=== PATIENT | female | born 1960 | race Caucasian/White ===

== ENCOUNTER 2017-10-06 06:44 | Inpatient (IN) | payer MEDICARE, MEDICAID ==
[2017-10-06] MEDS ORDERED: ONDANSETRON PF 4 MG/2 ML VIAL. IV (10:30)
[2017-10-06] MEDS: IV NORMAL SALINE 1000ML BAG 1,000 ML IV (10:48)
[2017-10-06] MEDS: hydroCHLOROthiazide 12.5 MG CAPSULE PO (10:49)
[2017-10-06] MEDS: LISINOPRIL 20 MG TABLET PO (10:49)
[2017-10-06] MEDS: amLODIPine BESYLATE 10 MG TABLET PO (10:49)
[2017-10-06] MEDS: LEVOTHYROXINE 137 MCG TABLET PO (10:49)
[2017-10-06] MEDS: CITALOPRAM 20 MG TABLET. PO (10:49)
[2017-10-06] MEDS: MORPHINE SULFATE 2 MG/ML DISP.SYRIN. IV ×3 (10:50→20:19)
[2017-10-06 12:16] LABS: TRIGLYCERIDES 55 mg/dL (0-150)
[2017-10-06 13:00] LABS: LIPASE 10234 U/L (73-393)
[2017-10-07] MEDS: MORPHINE SULFATE 2 MG/ML DISP.SYRIN. IV ×7 (00:40→22:45)
[2017-10-07] MEDS: IV NORMAL SALINE 1000ML BAG 1,000 ML IV ×2 (01:37→13:23)
[2017-10-07 05:02] LABS: ADD MAN DIFF? NO
[2017-10-07 05:33] LABS: BASO % 1 % (0-3); EOS # 0.1 x10^3/uL (0.0-0.7); EOS % 1 % (0-3); HEMATOCRIT 39.4 % (36.0-47.0); LYMPH # 2.3 x10^3/uL (1.0-4.8); LYMPH % 31 % (24-48); MEAN CORPUSCULAR HEMOGLOBIN 28 pg (25-35); MEAN CORPUSCULAR HGB CONC 33 g/dL (31-37); MEAN CORPUSCULAR VOLUME 86 fL (79-100); MONO # 0.6 x10^3/uL (0.0-1.1); MONO % 8 % (0-9); NEUT # 4.4 x10^3uL (1.8-7.7); NEUT % 59 % (31-73); PLATELET COUNT 209 x10^3/uL (140-400); RED BLOOD COUNT 4.59 x10^6/uL (3.50-5.40); RED CELL DISTRIBUTION WIDTH 15.4 % (11.5-14.5); WHITE BLOOD COUNT 7.5 x10^3/uL (4.0-11.0)
[2017-10-07 05:54] LABS: ANION GAP 6 (6-14); BLOOD UREA NITROGEN 23 mg/dL (7-20); CALCIUM 8.5 mg/dL (8.5-10.1); CARBON DIOXIDE 35 mmol/L (21-32); CHLORIDE 100 mmol/L (98-107); CREATININE 1.1 mg/dL (0.6-1.0); GLUCOSE 100 mg/dL (70-99); POTASSIUM 3.4 mmol/L (3.5-5.1); SODIUM 141 mmol/L (136-145)
[2017-10-07] MEDS: LEVOTHYROXINE 137 MCG TABLET PO (07:35)
[2017-10-07] MEDS: CITALOPRAM 20 MG TABLET. PO (08:52)
[2017-10-07] MEDS: hydroCHLOROthiazide 12.5 MG CAPSULE PO (08:58)
[2017-10-07] MEDS: amLODIPine BESYLATE 10 MG TABLET PO (08:59)
[2017-10-07] MEDS: LISINOPRIL 20 MG TABLET PO (08:59)
[2017-10-07] MEDS: [UNRECOGNIZED DRUG - OTHER] SL (09:00)
[2017-10-07] MEDS: BUPRENORPHINE HCL SL (09:00)
[2017-10-07] MEDS: NALOXONE HCL SL (09:00)
[2017-10-07] MEDS: POTASSIUM CHLORIDE 20 MEQ TABLET.ER. PO (13:24)
[2017-10-08] MEDS: MORPHINE SULFATE 2 MG/ML DISP.SYRIN. IV ×6 (02:51→22:57)
[2017-10-08] MEDS: IV NORMAL SALINE 1000ML BAG 1,000 ML IV ×2 (02:53→17:12)
[2017-10-08 04:24] LABS: ADD MAN DIFF? NO
[2017-10-08 04:30] LABS: BASO # 0.1 x10^3/uL (0.0-0.2); BASO % 1 % (0-3); EOS # 0.1 x10^3/uL (0.0-0.7); EOS % 2 % (0-3); HEMATOCRIT 38.5 % (36.0-47.0); LYMPH # 2.2 x10^3/uL (1.0-4.8); LYMPH % 31 % (24-48); MEAN CORPUSCULAR HEMOGLOBIN 29 pg (25-35); MEAN CORPUSCULAR HGB CONC 34 g/dL (31-37); MEAN CORPUSCULAR VOLUME 85 fL (79-100); MONO # 0.7 x10^3/uL (0.0-1.1); MONO % 10 % (0-9); NEUT # 4.2 x10^3uL (1.8-7.7); NEUT % 58 % (31-73); PLATELET COUNT 186 x10^3/uL (140-400); RED BLOOD COUNT 4.53 x10^6/uL (3.50-5.40); RED CELL DISTRIBUTION WIDTH 15.2 % (11.5-14.5); WHITE BLOOD COUNT 7.3 x10^3/uL (4.0-11.0)
[2017-10-08 04:45] LABS: ANION GAP 7 (6-14); BLOOD UREA NITROGEN 19 mg/dL (7-20); CALCIUM 9.1 mg/dL (8.5-10.1); CARBON DIOXIDE 33 mmol/L (21-32); CHLORIDE 102 mmol/L (98-107); GFR 56.9; GLUCOSE 95 mg/dL (70-99); LIPASE 511 U/L (73-393); POTASSIUM 3.8 mmol/L (3.5-5.1); SODIUM 142 mmol/L (136-145)
[2017-10-08] MEDS: LISINOPRIL 20 MG TABLET PO (09:00)
[2017-10-08] MEDS: CITALOPRAM 20 MG TABLET. PO (09:00)
[2017-10-08] MEDS: BUPRENORPHINE HCL SL (09:00)
[2017-10-08] MEDS: NALOXONE HCL SL (09:00)
[2017-10-08] MEDS: hydroCHLOROthiazide 12.5 MG CAPSULE PO (09:00)
[2017-10-08] MEDS: LEVOTHYROXINE 137 MCG TABLET PO (09:00)
[2017-10-08] MEDS: [UNRECOGNIZED DRUG - OTHER] SL (09:00)
[2017-10-08] MEDS: FLU VACC QS2017-18 (36MOS+)/PF 0.5 ML SYRINGE. VAX IM (11:00)
[2017-10-08 12:22] LABS: ALBUMIN 3.3 g/dL (3.4-5.0); ALK PHOS 66 U/L (46-116); ALT (SGPT) 79 U/L (14-59); AST (SGOT) 32 U/L (15-37); DIRECT BILIRUBIN 0.1 mg/dL (0.0-0.2); TOTAL BILIRUBIN 0.6 mg/dL (0.2-1.0); TOTAL PROTEIN 6.5 g/dL (6.4-8.2)
[2017-10-08] MEDS ORDERED: DOCUSATE SODIUM 100 MG CAPSULE. PO (14:00)
[2017-10-08] MEDS ORDERED: ONDANSETRON PF 4 MG/2 ML VIAL. IV (14:00)
[2017-10-08] MEDS ORDERED: ACETAMINOPHEN 325 MG TABLET. PO (14:00)
[2017-10-08] MEDS ORDERED: hydrALAZINE 20 MG/ML VIAL. IVP (14:00)
[2017-10-09] MEDS: MORPHINE SULFATE 2 MG/ML DISP.SYRIN. IV ×4 (02:16→11:06)
[2017-10-09 05:53] LABS: ADD MAN DIFF? NO
[2017-10-09] MEDS: IV NORMAL SALINE 1000ML BAG 1,000 ML IV ×2 (06:05→19:34)
[2017-10-09 06:10] LABS: BASO % 1 % (0-3); EOS # 0.2 x10^3/uL (0.0-0.7); EOS % 2 % (0-3); HEMATOCRIT 39.1 % (36.0-47.0); HEMOGLOBIN 12.9 g/dL (12.0-15.5); LYMPH # 2.2 x10^3/uL (1.0-4.8); LYMPH % 34 % (24-48); MEAN CORPUSCULAR HEMOGLOBIN 28 pg (25-35); MEAN CORPUSCULAR HGB CONC 33 g/dL (31-37); MEAN CORPUSCULAR VOLUME 85 fL (79-100); MONO # 0.6 x10^3/uL (0.0-1.1); MONO % 9 % (0-9); NEUT # 3.5 x10^3uL (1.8-7.7); NEUT % 54 % (31-73); PLATELET COUNT 190 x10^3/uL (140-400); RED BLOOD COUNT 4.59 x10^6/uL (3.50-5.40); RED CELL DISTRIBUTION WIDTH 14.8 % (11.5-14.5); WHITE BLOOD COUNT 6.4 x10^3/uL (4.0-11.0)
[2017-10-09 06:23] LABS: ANION GAP 6 (6-14); BLOOD UREA NITROGEN 15 mg/dL (7-20); CALCIUM 8.6 mg/dL (8.5-10.1); CARBON DIOXIDE 33 mmol/L (21-32); CHLORIDE 102 mmol/L (98-107); CREATININE 0.9 mg/dL (0.6-1.0); GFR 64.3; GLUCOSE 79 mg/dL (70-99); LIPASE 229 U/L (73-393); POTASSIUM 3.5 mmol/L (3.5-5.1); SODIUM 141 mmol/L (136-145)
[2017-10-09] MEDS: LEVOTHYROXINE 137 MCG TABLET PO (08:34)
[2017-10-09] MEDS: CITALOPRAM 20 MG TABLET. PO (11:06)
[2017-10-09] MEDS: LISINOPRIL 20 MG TABLET PO (11:06)
[2017-10-09] MEDS: hydroCHLOROthiazide 12.5 MG CAPSULE PO (11:06)
[2017-10-09] MEDS: HYDROmorphone 2 MG/ML VIAL IV ×3 (14:58→20:57)
[2017-10-10] MEDS: HYDROmorphone 2 MG/ML VIAL IV ×5 (01:13→20:31)
[2017-10-10 05:38] LABS: ADD MAN DIFF? NO
[2017-10-10 06:06] LABS: BASO % 1 % (0-3); EOS # 0.2 x10^3/uL (0.0-0.7); EOS % 3 % (0-3); HEMATOCRIT 42.9 % (36.0-47.0); HEMOGLOBIN 14.2 g/dL (12.0-15.5); LYMPH # 2.3 x10^3/uL (1.0-4.8); LYMPH % 36 % (24-48); MEAN CORPUSCULAR HEMOGLOBIN 28 pg (25-35); MEAN CORPUSCULAR HGB CONC 33 g/dL (31-37); MEAN CORPUSCULAR VOLUME 85 fL (79-100); MONO # 0.5 x10^3/uL (0.0-1.1); MONO % 8 % (0-9); NEUT # 3.4 x10^3uL (1.8-7.7); NEUT % 53 % (31-73); PLATELET COUNT 227 x10^3/uL (140-400); RED BLOOD COUNT 5.02 x10^6/uL (3.50-5.40); RED CELL DISTRIBUTION WIDTH 15.1 % (11.5-14.5); WHITE BLOOD COUNT 6.4 x10^3/uL (4.0-11.0)
[2017-10-10 06:41] LABS: ALBUMIN 3.4 g/dL (3.4-5.0); ALBUMIN/GLOBULIN RATIO 0.9 (1.0-1.7); ALK PHOS 58 U/L (46-116); ALT (SGPT) 48 U/L (14-59); ANION GAP 8 (6-14); AST (SGOT) 20 U/L (15-37); BLOOD UREA NITROGEN 10 mg/dL (7-20); BUN/CREATININE RATIO 10 (6-20); CALCIUM 9.2 mg/dL (8.5-10.1); CARBON DIOXIDE 32 mmol/L (21-32); CHLORIDE 103 mmol/L (98-107); GFR 56.9; GLUCOSE 120 mg/dL (70-99); POTASSIUM 3.6 mmol/L (3.5-5.1); SODIUM 143 mmol/L (136-145); TOTAL BILIRUBIN 0.5 mg/dL (0.2-1.0); TOTAL PROTEIN 7.4 g/dL (6.4-8.2)
[2017-10-10] MEDS: CITALOPRAM 20 MG TABLET. PO (08:21)
[2017-10-10] MEDS: LISINOPRIL 20 MG TABLET PO (08:21)
[2017-10-10] MEDS: IV NORMAL SALINE 1000ML BAG 1,000 ML IV ×2 (08:21→20:28)
[2017-10-10] MEDS: hydroCHLOROthiazide 12.5 MG CAPSULE PO (08:21)
[2017-10-10] MEDS: LEVOTHYROXINE 137 MCG TABLET PO (08:21)
[2017-10-11] MEDS: HYDROmorphone 2 MG/ML VIAL IV ×7 (00:33→18:21)
[2017-10-11 06:22] LABS: ADD MAN DIFF? NO
[2017-10-11 06:52] LABS: BASO % 1 % (0-3); EOS # 0.2 x10^3/uL (0.0-0.7); EOS % 4 % (0-3); HEMATOCRIT 38.9 % (36.0-47.0); HEMOGLOBIN 13.1 g/dL (12.0-15.5); LYMPH # 2.1 x10^3/uL (1.0-4.8); LYMPH % 37 % (24-48); MEAN CORPUSCULAR HEMOGLOBIN 29 pg (25-35); MEAN CORPUSCULAR HGB CONC 34 g/dL (31-37); MEAN CORPUSCULAR VOLUME 85 fL (79-100); MONO # 0.5 x10^3/uL (0.0-1.1); MONO % 10 % (0-9); NEUT # 2.8 x10^3uL (1.8-7.7); NEUT % 49 % (31-73); PLATELET COUNT 209 x10^3/uL (140-400); RED BLOOD COUNT 4.56 x10^6/uL (3.50-5.40); RED CELL DISTRIBUTION WIDTH 14.8 % (11.5-14.5); WHITE BLOOD COUNT 5.7 x10^3/uL (4.0-11.0)
[2017-10-11] MEDS ORDERED: PROCHLORPERAZINE 10 MG/2 ML VIAL. IV (07:00)
[2017-10-11] MEDS ORDERED: ONDANSETRON PF 4 MG/2 ML VIAL. IV (07:00)
[2017-10-11] MEDS ORDERED: LIDOCAINE 1% PF 2 ML VIAL. ID (07:00)
[2017-10-11] MEDS ORDERED: MORPHINE SULFATE 2 MG/ML DISP.SYRIN. IV (07:00)
[2017-10-11] MEDS ORDERED: fentaNYL PF VIAL 100 MCG/2 ML VIAL IV (07:00)
[2017-10-11 07:08] LABS: ANION GAP 4 (6-14); BLOOD UREA NITROGEN 7 mg/dL (7-20); CALCIUM 8.7 mg/dL (8.5-10.1); CARBON DIOXIDE 35 mmol/L (21-32); CHLORIDE 105 mmol/L (98-107); GFR 56.9; GLUCOSE 121 mg/dL (70-99); POTASSIUM 3.9 mmol/L (3.5-5.1); SODIUM 144 mmol/L (136-145)
[2017-10-11] MEDS: LEVOTHYROXINE 137 MCG TABLET PO (08:18)
[2017-10-11] MEDS: hydroCHLOROthiazide 12.5 MG CAPSULE PO (08:19)
[2017-10-11] MEDS: CITALOPRAM 20 MG TABLET. PO (08:19)
[2017-10-11] MEDS: LISINOPRIL 20 MG TABLET PO (08:19)
[2017-10-11] MEDS: IV NORMAL SALINE 1000ML BAG 1,000 ML IV ×2 (10:30→16:22)
[2017-10-11] MEDS ORDERED: PROPOFOL 20 ML IV (12:54)
[2017-10-11] MEDS ORDERED: LIDOCAINE 2% PF Vial for OR 5 ML VIAL. (12:54)
[2017-10-11] MEDS ORDERED: DEXAMETHASONE SOD PHOS 20 MG/5 ML VIAL. (12:55)
[2017-10-11] MEDS ORDERED: ROCURONIUM 50 MG/5 ML VIAL. (12:55)
[2017-10-11] MEDS ORDERED: ONDANSETRON PF 4 MG/2 ML VIAL. (12:56)
[2017-10-11] MEDS ORDERED: fentaNYL PF VIAL 100 MCG/2 ML VIAL ×3 (12:56→15:58)
[2017-10-11 13:26] LABS: POC GLUCOSE 100 mg/dL (70-99)
[2017-10-11] MEDS: BUPIVACAINE-EPI 0.25%-1:200000 50 ML VIAL. (14:17)
[2017-10-11] MEDS: fentaNYL PF VIAL 100 MCG/2 ML VIAL IV ×4 (15:45→16:21)
[2017-10-11] MEDS ORDERED: HYDROmorphone 2 MG/ML VIAL (15:58)
[2017-10-11] MEDS: IV RINGERS,LACTATED 1000ML 1,000 ML IV (16:39)
[2017-10-11] MEDS: oxyCODONE/APAP 5/325 1 TAB TABLET PO (20:15)
[2017-10-12] MEDS: oxyCODONE/APAP 5/325 1 TAB TABLET PO ×3 (02:55→13:16)
[2017-10-12 06:03] LABS: BASO % 0 % (0-3); EOS % 0 % (0-3); HEMATOCRIT 40.1 % (36.0-47.0); HEMOGLOBIN 13.3 g/dL (12.0-15.5); LYMPH # 0.7 x10^3/uL (1.0-4.8); LYMPH % 9 % (24-48); MEAN CORPUSCULAR HEMOGLOBIN 28 pg (25-35); MEAN CORPUSCULAR HGB CONC 33 g/dL (31-37); MEAN CORPUSCULAR VOLUME 84 fL (79-100); MONO # 0.2 x10^3/uL (0.0-1.1); MONO % 3 % (0-9); NEUT # 6.9 x10^3uL (1.8-7.7); NEUT % 88 % (31-73); PLATELET COUNT 228 x10^3/uL (140-400); RED BLOOD COUNT 4.75 x10^6/uL (3.50-5.40); RED CELL DISTRIBUTION WIDTH 15.1 % (11.5-14.5); WHITE BLOOD COUNT 7.8 x10^3/uL (4.0-11.0)
[2017-10-12 06:07] LABS: ADD MAN DIFF? YES
[2017-10-12 06:26] LABS: ANION GAP 7 (6-14); BLOOD UREA NITROGEN 9 mg/dL (7-20); CALCIUM 8.7 mg/dL (8.5-10.1); CARBON DIOXIDE 30 mmol/L (21-32); CHLORIDE 104 mmol/L (98-107); CREATININE 1.1 mg/dL (0.6-1.0); GLUCOSE 151 mg/dL (70-99); SODIUM 141 mmol/L (136-145)
[2017-10-12] MEDS: LEVOTHYROXINE 137 MCG TABLET PO (06:27)
[2017-10-12 07:17] LABS: % BANDS 3 % (0-9); % LYMPHS 7 % (24-48); % MONOS 2 % (0-10); % SEGS 88 % (35-66); PLT ESTIMATE ADEQUATE (ADEQUATE)
[2017-10-12] MEDS: LISINOPRIL 20 MG TABLET PO (09:09)
[2017-10-12] MEDS: hydroCHLOROthiazide 12.5 MG CAPSULE PO (09:10)
[2017-10-12] MEDS: CITALOPRAM 20 MG TABLET. PO (09:11)
[2017-10-12] MEDS ORDERED: BISACODYL 5 MG TABLET.DR. PO (09:45)
[2017-10-12] MEDS ORDERED: CALCIUM CARBONATE 500 MG TAB.CHEW PO (09:45)
[2017-10-12] MEDS: POLYETHYLENE GLYCOL 3350 17 GM PACKET. PO (11:38)
[2017-10-12] MEDS: IV NORMAL SALINE 1000ML BAG 1,000 ML IV (13:40)
== END 2017-10-12 14:03 | disposition home or self-care (01) | DRG 417 ==
LOC: 5 SOUTH 06:44
PROVIDERS: Internal Medicine
PROC: 0FT44ZZ Resection of Gallbladder, Percutaneous Endoscopic Approach (ICD-10-PCS; principal; 2017-10-11 13:57)
DX: K80.10 Calculus of gallbladder with chronic cholecystitis without obstruction (principal); K85.10 Biliary acute pancreatitis without necrosis or infection; K76.0 Fatty (change of) liver, not elsewhere classified; E87.6 Hypokalemia; D35.02 Benign neoplasm of left adrenal gland; E03.9 Hypothyroidism, unspecified; E11.9 Type 2 diabetes mellitus without complications; F32.9 Major depressive disorder, single episode, unspecified; Z88.8 Allergy status to other drugs, medicaments and biological substances; F41.9 Anxiety disorder, unspecified; G89.29 Other chronic pain; I10 Essential (primary) hypertension; E66.9 Obesity, unspecified; K59.00 Constipation, unspecified; M51.36 Other intervertebral disc degeneration, lumbar region; M70.61 Trochanteric bursitis, right hip; Z82.49 Family history of ischemic heart disease and other diseases of the circulatory system; Z83.3 Family history of diabetes mellitus; Z98.1 Arthrodesis status
CPT/HCPCS: 36415; 74181; 76705; 80048; 80053; 80076; 82962; 83690; 84478; 85007; 85025; 88304; J0690; J1100; J1170; J2060; J2270; J2405; J2704; J3010; J7030

== ENCOUNTER → 2017-12-04 | Day surgery (SDC) | payer MEDICARE, MEDICAID ==
[~2017-12-04] MED LIST: LIDOCAINE 1% PF 2 ML VIAL. ID; ONDANSETRON PF 4 MG/2 ML VIAL. IV; PROCHLORPERAZINE 10 MG/2 ML VIAL. IV; PROPOFOL 40 ML IV; fentaNYL PF VIAL 100 MCG/2 ML VIAL IV
[2017-12-04] MEDS: IV RINGERS,LACTATED 1000ML 1,000 ML IV (13:18)
== END | disposition home or self-care (01) ==
LOC: ENDOS 12:35
DX: Z46.59 Encounter for fitting and adjustment of other gastrointestinal appliance and device (principal); K21.0 Gastro-esophageal reflux disease with esophagitis; I10 Essential (primary) hypertension; E03.9 Hypothyroidism, unspecified; Z90.49 Acquired absence of other specified parts of digestive tract; Z98.890 Other specified postprocedural states; Z79.899 Other long term (current) drug therapy; Z88.6 Allergy status to analgesic agent
CPT/HCPCS: 43247; J2704

== ENCOUNTER → 2018-04-12 | Day surgery (SDC) | payer MEDICARE, MEDICAID ==
[~2018-04-12] MED LIST changes: +AMLO10TA2 PO; +BUPR1FIL5 SL; +CITA40TA5 PO; +CLON0.5T11 PO; +CYCL10TA2 PO; +DOCU-109 PO; +GABA-586 PO; +IV RINGERS,LACTATED 1000ML 1,000 ML IV SCH; +LEVO100V5 PO; +LEVO137T3 PO; -LIDOCAINE 1% PF 2 ML VIAL. ID; +LIDOCAINE 1% PF 2 ML VIAL. ID PRN; +LIDOCAINE 2% PF Vial for OR 5 ML VIAL. ONE; +LISI1TAB5 PO; +LISI1TAB7 PO; +MELO15TA23 PO; +MIDAZOLAM HCL/PF 2 MG/2 ML VIAL. ONE; +MORP60CA17 PO; -ONDANSETRON PF 4 MG/2 ML VIAL. IV; +OXYC-323 PO; +OXYC-327 PO; +OXYC10TA PO; +OXYC40TA21 PO; -PROCHLORPERAZINE 10 MG/2 ML VIAL. IV; +PROCHLORPERAZINE 10 MG/2 ML VIAL. IV PRN; +PROPOFOL 20 ML IV ONE; -PROPOFOL 40 ML IV; +TRAM50TA PO; -fentaNYL PF VIAL 100 MCG/2 ML VIAL IV; +fentaNYL PF VIAL 100 MCG/2 ML VIAL IV PRN; +fentaNYL PF VIAL 100 MCG/2 ML VIAL ONE
[2018-04-12 13:21] VITALS: BP 96/41
--- NOTE | 2018-04-12 15:35 | RAD ---
MRI of the lumbar spine without contrast 04/12/2018 CLINICAL HISTORY: Chronic low back pain which radiates down the right leg. TECHNIQUE: Unenhanced T1-weighted and T2-weighted sagittal and axial and inversion recovery sagittal images of the lumbar spine were obtained. FINDINGS: Comparison study is dated 05/31/2015. Very mild S-shaped curvature of the thoracolumbar spine is seen. Degenerative signal changes are seen involving all of the disks of the lumbar spine. The patient is post fusion at L4-5 using pedicle screws, stabilizing rods and bone graft material. Degenerative signal changes are seen within the marrow surrounding all of the disks of the lumbar spine. The conus medullaris is normal morphology, position, and signal characteristics. A 5.5 cm rounded high signal intensity lesion is seen projecting inferiorly from the lower pole the right kidney. This likely represents a cyst. At the L1-2, L2-3 and L3-4 disc spaces there are minimal to mild generalized disc bulges. Degenerative changes are seen involving the facet joints bilaterally. There is mild ligamentum flavum hypertrophy bilaterally. These findings when combined do not result in significant central spinal canal or neural foraminal stenosis. At the L4-5 level the patient is post right hemilaminotomy. Degenerative changes are seen involving the facet joints bilaterally. These findings do not result in significant central spinal canal or neural foraminal stenosis. At the L5-S1 disc space there is a mild generalized disc bulge. Degenerative changes are seen involving the facet joints bilaterally. These findings do not result in significant central spinal canal or neural foraminal stenosis. IMPRESSION: 1. Postsurgical changes are seen at L4-5 as outlined above. 2. The changes of degenerative disc disease are seen involving the lumbar spine. These findings do not result in significant central spinal canal or neural foraminal stenosis. Electronically signed by: Lisandro Ramirez MD (04/12/2018 3:31 PM) [id number]
== END | disposition home or self-care (01) ==
LOC: SURG 11:08
PROVIDERS: ATTEND Family Medicine
DX: M54.5 Low back pain (principal); K21.9 Gastro-esophageal reflux disease without esophagitis; E03.9 Hypothyroidism, unspecified; Z79.899 Other long term (current) drug therapy; G47.30 Sleep apnea, unspecified; M17.11 Unilateral primary osteoarthritis, right knee; I25.10 Atherosclerotic heart disease of native coronary artery without angina pectoris; I11.0 Hypertensive heart disease with heart failure; E78.5 Hyperlipidemia, unspecified; F32.9 Major depressive disorder, single episode, unspecified; E66.01 Morbid (severe) obesity due to excess calories; I25.2 Old myocardial infarction; Z85.820 Personal history of malignant melanoma of skin; Z87.891 Personal history of nicotine dependence; Z68.42 Body mass index [BMI] 45.0-49.9, adult; Z98.890 Other specified postprocedural states; Z88.8 Allergy status to other drugs, medicaments and biological substances; Z90.49 Acquired absence of other specified parts of digestive tract; Z88.6 Allergy status to analgesic agent
CPT/HCPCS: 72148; J2001; J2250; J2704; J3010

== ENCOUNTER → 2018-05-09 | Outpatient (CLI) | payer MEDICARE, MEDICAID ==
[~2018-05-09] MED LIST changes: -AMLO10TA2 PO; +AMLO10TA6 PO; -IV RINGERS,LACTATED 1000ML 1,000 ML IV SCH; -LIDOCAINE 1% PF 2 ML VIAL. ID PRN; -LIDOCAINE 2% PF Vial for OR 5 ML VIAL. ONE; -MIDAZOLAM HCL/PF 2 MG/2 ML VIAL. ONE; -PROCHLORPERAZINE 10 MG/2 ML VIAL. IV PRN; -PROPOFOL 20 ML IV ONE; -fentaNYL PF VIAL 100 MCG/2 ML VIAL IV PRN; -fentaNYL PF VIAL 100 MCG/2 ML VIAL ONE
[2018-05-09] MEDS: LIDOCAINE WITH 8.4% SOD BICARB 3 ML DISP.SYRIN. INJ ONE (14:55)
[2018-05-09] MEDS: IOHEXOL 180 MG/ML 10 ML VIAL. IT ONE (14:55)
[2018-05-09 15:15] VITALS: BP 102/47
[2018-05-09 15:30] VITALS: BP 90/45
[2018-05-09 15:50] VITALS: BP 95/47
--- NOTE | 2018-05-09 16:17 | RAD ---
Lumbar myelogram, 05/09/2018: History: Lumbar radiculopathy Under local anesthesia, aseptic conditions and fluoroscopic guidance a lumbar puncture was performed at the mid L2 level utilizing a 25-gauge Chuck spinal needle. Good clear CSF flow was obtained following which 14 cc of Omnipaque 180 was injected into the thecal sac. The spinal needle was then removed and hemostasis obtained. Appropriate digital imaging was then performed. 3.0 minutes of fluoroscopy time was utilized. 15 fluoroscopic spot images were recorded. The patient tolerated the procedure well and was sent to CT in good condition. The following findings are delineated on the myelogram: 1. There are bilateral pedicle screws in place at L4 and L5 attached to longitudinally oriented posterior fixation rods. A radiopaque disc spacer is present at L4-5. There is a slight anterolisthesis at L4-5. No instability is evident on upright flexion and extension imaging. 2. Mild anterior extradural defects are present at L1-2 and to a lesser degree at L2-3 and L3-4 without high-grade central spinal stenosis. 3. There is symmetric opacification of the nerve root sleeves in the lower lumbar spine. CT of the lumbar spine-post myelogram, 05/09/2018: Multidetector CT imaging was performed with multiplanar reconstructions produced. Following findings are delineated: 1. At L1-2 there is mild posterior disc bulging. The thecal sac measures 12 mm in AP diameter at the midline. There is no significant central spinal or foraminal stenosis. 2. At L2-3 there is no significant posterior disc bulge or protrusion. There are mild degenerative changes involving the facet joints bilaterally. The central spinal canal and neural foramina are well maintained. 3. At L3-4 there are moderate degenerative changes involving the facet joints, worse on the right. No posterior disc bulge or protrusion is seen. The central spinal canal and neural foramina are well maintained. 4. The above described fixation devices at L4-5 degrade image quality at the L4-5 level. There has been a partial laminectomy on the right. The posterior elements are at least partially fused. There is a slight anterolisthesis. The central spinal canal is well maintained. There is mild to moderate foraminal narrowing bilaterally. 5. At L5-S1 there are moderate degenerative changes involving the facet joints with vacuum phenomena. There is only slight posterior disc bulging laterally on the left. The central spinal canal is well maintained. There is mild to moderate foraminal narrowing, more so on the left. IMPRESSION: 1. Previous posterior spinal fusion and instrumentation at L4-5. 2. Mild to moderate scattered degenerative changes as described above. 3. No significant central spinal stenosis. 4. Mild to moderate bilateral foraminal narrowing at L4-5 and L5-S1. PQRS Compliance Statement: One or more of the following individualized dose reduction techniques were utilized for this examination: 1. Automated exposure control 2. Adjustment of the mA and/or kV according to patient size 3. Use of iterative reconstruction technique
== END | disposition home or self-care (01) ==
LOC: RAD 14:22
PROVIDERS: ATTEND Neurological Surgery
DX: M48.061 Spinal stenosis, lumbar region without neurogenic claudication (principal); M48.07 Spinal stenosis, lumbosacral region; M47.896 Other spondylosis, lumbar region; M43.26 Fusion of spine, lumbar region; I11.0 Hypertensive heart disease with heart failure; I50.9 Heart failure, unspecified; I25.10 Atherosclerotic heart disease of native coronary artery without angina pectoris; E11.9 Type 2 diabetes mellitus without complications; E66.01 Morbid (severe) obesity due to excess calories; I25.2 Old myocardial infarction; K21.9 Gastro-esophageal reflux disease without esophagitis; M17.0 Bilateral primary osteoarthritis of knee; E03.9 Hypothyroidism, unspecified; Z87.891 Personal history of nicotine dependence; Z85.820 Personal history of malignant melanoma of skin; Z90.49 Acquired absence of other specified parts of digestive tract; Z68.42 Body mass index [BMI] 45.0-49.9, adult; Z88.8 Allergy status to other drugs, medicaments and biological substances; Z88.6 Allergy status to analgesic agent; Z79.899 Other long term (current) drug therapy; Z82.49 Family history of ischemic heart disease and other diseases of the circulatory system; Z83.3 Family history of diabetes mellitus
CPT/HCPCS: 72132; 72265; Q9965

== ENCOUNTER 2019-05-29 18:20 | Emergency (ER) | payer MEDICARE, MEDICAID ==
[~2019-05-29] VITALS: Ht 167.6 cm; Wt 96.6 kg
[~2019-05-29 18:20] MED LIST changes: -AMLO10TA6 PO; +AMLO10TA8 PO; +CLON-77 PO; -CLON0.5T11 PO; -GABA-586 PO; +GABA300C18 PO; +LISI1TAB19 PO; +LISI1TAB20 PO; -LISI1TAB5 PO; -LISI1TAB7 PO; -OXYC-323 PO; -OXYC-327 PO; +OXYC1TAB15 PO; +OXYC1TAB19 PO
--- NOTE | 2019-05-29 19:00 | PHYS DOC ---
Past Medical History Past Medical History: Gallstones, Hypertension, Hypothyroid Past Surgical History: Cholecystectomy Alcohol Use: None Drug Use: None Critical Care Time Critical care time was 35 minutes exclusive of procedures. Adult General Chief Complaint Chief Complaint: ABNORMAL LABS HPI HPI 58-year-old female presents to the emergency Department with abnormal labs. Patient was sent from nephrology office for hemoglobin of 7.8. Patient denies any hematuria, bright red blood per rectum, dark or tarry stools. She denies any vaginal bleeding. Patient has a history of chronic kidney disease. Approximately one half weeks ago she had a near syncopal episode however has not had anything since. She denies any chest pain, shortness of breath, abdominal pain, nausea, vomiting. On further discussion with patient, she describes occasional nosebleed, bleeding from her gums when she brushes her teeth. She is well describes a rash that she started after taking antibiotic for sinus infection, she is unknown of the antibiotic name and pharmacy is closed this time. She states the rash is located on her abdomen her forearm legs and inner thigh. Review of Systems Review of Systems Constitutional: Denies fever or chills [] Eyes: Denies change in visual acuity, redness, or eye pain [] Respiratory: Denies cough or shortness of breath [] Cardiovascular: No additional information not addressed in HPI [] GI: Denies abdominal pain, nausea, vomiting, bloody stools or diarrhea [] : Denies dysuria or hematuria [] Integument: Red nonraised rash Neurologic: Denies headache, focal weakness or sensory changes [] All other systems were reviewed and found to be within normal limits, except as documented in this note. Allergies Allergies Allergies Coded Allergies Type Severity Reaction Last Updated Verified hydrocodone Allergy Intermediate rash, redness 04/12/18 Yes Physical Exam Physical Exam Constitutional: Well developed, well nourished, no acute distress, non-toxic appearance. [] HENT: Normocephalic, atraumatic, bilateral external ears normal, oropharynx moist, no oral exudates, nose normal. Small petechiae within oromucosa[] Eyes: PERRLA, EOMI, conjunctiva normal, no discharge. [] Cardiovascular:Heart rate regular rhythm, no murmur [] Lungs & Thorax: Bilateral breath sounds clear to auscultation [] Abdomen: Bowel sounds normal, soft, no tenderness, no masses, no pulsatile masses. [] Skin: Warm, dry, no erythema, petechial rash appreciated to arms, legs, inner thigh Extremities: No tenderness, no cyanosis, no edema. [] Neurologic: Alert and oriented X 3, no focal deficits noted. [] Psychologic: Affect normal, judgement normal, mood normal. [] : Rectal exam completed, no stool in rectal vault, Hemoccult unable to be obtained Current Patient Data Vital Signs Vital Signs Date Time Temp Pulse Resp B/P (MAP) Pulse Ox O2 Delivery O2 Flow Rate FiO2 05/29/19 20:30 54 17 111/52 (71) 98 Room Air 05/29/19 18:53 97.8 97.8 Lab Values Laboratory Tests Test 05/29/19 18:58 White Blood Count 5.9 x10^3/uL (4.0-11.0) Red Blood Count 2.62 x10^6/uL (3.50-5.40) L Hemoglobin 7.7 g/dL (12.0-15.5) L Hematocrit 23.5 % (36.0-47.0) L Mean Corpuscular Volume 90 fL (79-100) Mean Corpuscular Hemoglobin 29 pg (25-35) Mean Corpuscular Hemoglobin Concent 33 g/dL (31-37) Red Cell Distribution Width 16.5 % (11.5-14.5) H Platelet Count 8 x10^3/uL (140-400) *L Neutrophils (%) (Auto) 1 % (31-73) L Lymphocytes (%) (Auto) 97 % (24-48) H Monocytes (%) (Auto) 1 % (0-9) Eosinophils (%) (Auto) 1 % (0-3) Basophils (%) (Auto) 1 % (0-3) Neutrophils # (Auto) 0.1 x10^3/uL (1.8-7.7) L Lymphocytes # (Auto) 5.7 x10^3/uL (1.0-4.8) H Monocytes # (Auto) 0.1 x10^3/uL (0.0-1.1) Eosinophils # (Auto) 0.0 x10^3/uL (0.0-0.7) Basophils # (Auto) 0.0 x10^3/uL (0.0-0.2) Segmented Neutrophils % 3 % (35-66) L Band Neutrophils % 1 % (0-9) Lymphocytes % 27 % (24-48) Blast Cells % (Manual) 65 % (0-0) H Other Cells % 4 % (0-0) H Nucleated Red Blood Cells 3 Becca Rods Present Platelet Estimate Decreased (ADEQUATE) Polychromasia Present Basophilic Stippling Present Anisocytosis Slight Tear Drop Cells Present Sodium Level 139 mmol/L (136-145) Potassium Level 4.2 mmol/L (3.5-5.1) Chloride Level 103 mmol/L (98-107) Carbon Dioxide Level 32 mmol/L (21-32) Anion Gap 4 (6-14) L Blood Urea Nitrogen 30 mg/dL (7-20) H Creatinine 1.3 mg/dL (0.6-1.0) H Estimated GFR (Cockcroft-Gault) 41.9 BUN/Creatinine Ratio 23 (6-20) H Glucose Level 100 mg/dL (70-99) H Calcium Level 8.8 mg/dL (8.5-10.1) Total Bilirubin 0.7 mg/dL (0.2-1.0) Aspartate Amino Transferase (AST) 17 U/L (15-37) Alanine Aminotransferase (ALT) 14 U/L (14-59) Alkaline Phosphatase 55 U/L (46-116) Total Protein 7.5 g/dL (6.4-8.2) Albumin 3.5 g/dL (3.4-5.0) Albumin/Globulin Ratio 0.9 (1.0-1.7) L Laboratory Tests 05/29/19 18:58 Laboratory Tests 05/29/19 18:58 EKG EKG [] Radiology/Procedures Radiology/Procedures [] Course & Med Decision Making Course & Med Decision Making Pertinent Labs and Imaging studies reviewed. (See chart for details) 58-year-old female presents to the emergency Department with abnormal labs. Patient was sent from nephrology office for hemoglobin of 7.8. Patient denies any hematuria, bright red blood per rectum, dark or tarry stools. She denies any vaginal bleeding. Patient has a history of chronic kidney disease. Approximately one half weeks ago she had a near syncopal episode however has not had anything since. She denies any chest pain, shortness of breath, abdominal pain, nausea, vomiting. On further discussion with patient, she describes occasional nosebleed, bleeding from her gums when she brushes her teeth. She is well describes a rash that she started after taking antibiotic for sinus infection, she is unknown of the antibiotic name and pharmacy is closed this time. She states the rash is located on her abdomen her forearm legs and inner thigh. Labs obtained, will follow up hemoglobin. Rectal exam completed however no stool within the rectal vault, no evidence of active or acute bleeding. Orthostatic vital signs reviewed Discussed CBC findings with hospitalist, will consult hematology from the emergency department for further recommendations with regards to admission versus transfer. Discussed with Dr. Sawyer at 2009 regarding patient, he recommends transfer to [facility], coags, CT imaging ordered however given the emergent need for transfer CT has been held, platelet transfusion has been held will send coags to once they're completed transfer center contacted with receiving physician [phone] [facility] for emergent transfer Maru Disclaimer Dragon Disclaimer This electronic medical record was generated, in whole or in part, using a voice recognition dictation system. Departure Departure Impression: Primary Impression: Acute leukemia Disposition: 05 TRANSFER OTHER (patient transferred to [facility]) Condition: GUARDED Referrals: PATRICIO SANDERS MD (PCP) SAIMA MENDOZA MD May 29, 2019 19:00
[2019-05-29 19:09] LABS: BASO % 1 % (0-3); EOS % 1 % (0-3); HEMATOCRIT 23.5 % (36.0-47.0); HEMOGLOBIN 7.7 g/dL (12.0-15.5); LYMPH # 5.7 x10^3/uL (1.0-4.8); LYMPH % 97 % (24-48); MEAN CORPUSCULAR HEMOGLOBIN 29 pg (25-35); MEAN CORPUSCULAR HGB CONC 33 g/dL (31-37); MEAN CORPUSCULAR VOLUME 90 fL (79-100); MONO # 0.1 x10^3/uL (0.0-1.1); MONO % 1 % (0-9); NEUT # 0.1 x10^3/uL (1.8-7.7); NEUT % 1 % (31-73); RED BLOOD COUNT 2.62 x10^6/uL (3.50-5.40); RED CELL DISTRIBUTION WIDTH 16.5 % (11.5-14.5)
[2019-05-29 19:16] LABS: CALCIUM 8.8 mg/dL (8.5-10.1); CREATININE 1.3 mg/dL (0.6-1.0); GFR 41.9; POTASSIUM 4.2 mmol/L (3.5-5.1)
[2019-05-29 19:21] LABS: PLATELET COUNT 8 x10^3/uL (140-400)
[2019-05-29 19:27] LABS: ALBUMIN 3.5 g/dL (3.4-5.0); ALBUMIN/GLOBULIN RATIO 0.9 (1.0-1.7); TOTAL BILIRUBIN 0.7 mg/dL (0.2-1.0); TOTAL PROTEIN 7.5 g/dL (6.4-8.2)
[2019-05-29 20:25] LABS: % BANDS 1 % (0-9); % LYMPHS 27 % (24-48); % OTHERS 4 % (0-0); % SEGS 3 % (35-66); ANISOCYTOSIS SLIGHT; NUCLEATED RBC 3; PLT ESTIMATE DECREASED (ADEQUATE); POLYCHROMASIA PRESENT; TEAR DROP CELLS PRESENT
[2019-05-29 20:30] VITALS: BP 111/52
[2019-05-29 21:04] LABS: PROTHROMBIN TIME PATIENT 12.4 SEC (11.7-14.0)
[2019-05-29 22:31] LABS: % BLASTS 65 % (0-0)
[2019-06-03 11:09] LABS: WHITE BLOOD COUNT 5.9 x10^3/uL (4.0-11.0)
== END 2019-05-29 20:59 | disposition short-term general hospital (02) ==
LOC: ER 18:20
DX: C95.00 Acute leukemia of unspecified cell type not having achieved remission (principal); I10 Essential (primary) hypertension; E03.9 Hypothyroidism, unspecified; Z88.5 Allergy status to narcotic agent
CPT/HCPCS: 36415; 80053; 85007; 85025; 85610; 99284; 99291-25